=== PATIENT | male | born 1980 | race Two or more races ===

== ENCOUNTER 2022-12-03 11:48 | Emergency (ER) | payer OTHER ==
[~2022-12-03] VITALS: Ht 170.2 cm; Wt 100.0 kg
[2022-12-03] MEDS ORDERED: bacitracin 15gm ointment TP ONE (16:55)
[2022-12-03] MEDS ORDERED: LIDOcaine 1% W/epiNEPHrine 1:100,000 20ml vial SQ ONE (16:55)
[2022-12-03] MEDS ORDERED: TETanus/Pertussis (Acell)/Diphther VAC/PF (Tdap-Adult) 0.5ml syringe IMVAC ONE (16:55)
[2022-12-03] MEDS ORDERED: LIDOcaine 1% W/epiNEPHrine 1:200,000 10ml vial IJ STA (17:28)
[2022-12-03] MEDS ORDERED: LIDOCAINE 1%/EPI 1:100,000 inj. 10 ML multi-dose vial IJ STA (17:30)
[2022-12-03 19:01] VITALS: BP 123/82; PULSE 60; RESP 16; TEMP 96.7; O2SAT 98
== END 2022-12-03 19:03 | disposition home or self-care (01) ==
LOC: ER 11:50
DX: S91.312A Laceration without foreign body, left foot, initial encounter (principal); X58.XXXA Exposure to other specified factors, initial encounter; Y93.89 Activity, other specified; Y92.89 Other specified places as the place of occurrence of the external cause; Y99.8 Other external cause status
CPT/HCPCS: 12032; 73630; 90471; 90715; 99284; A6223; J7030; 99283; A6449